=== PATIENT | female | born 1975 | race Caucasian/White ===

== ENCOUNTER → 2019-02-05 | Outpatient (CLI) | payer OTHER ==
[2019-02-05 08:43] LABS: ALBUMIN 3.3 g/dL (3.4-5.0); ALBUMIN/GLOBULIN RATIO 0.8 (1.0-1.7); CALCIUM 9.4 mg/dL (8.5-10.1); CREATININE 0.7 mg/dL (0.6-1.0); GFR 92.2; TOTAL BILIRUBIN 0.3 mg/dL (0.2-1.0); TOTAL PROTEIN 7.5 g/dL (6.4-8.2)
[2019-02-05 08:46] LABS: BASO % 1 % (0-3); EOS # 0.1 x10^3/uL (0.0-0.7); EOS % 3 % (0-3); HEMATOCRIT 42.3 % (36.0-47.0); HEMOGLOBIN 14.5 g/dL (12.0-15.5); LYMPH # 1.9 x10^3/uL (1.0-4.8); LYMPH % 32 % (24-48); MEAN CORPUSCULAR HEMOGLOBIN 29 pg (25-35); MEAN CORPUSCULAR HGB CONC 34 g/dL (31-37); MEAN CORPUSCULAR VOLUME 84 fL (79-100); MONO # 0.2 x10^3/uL (0.0-1.1); MONO % 4 % (0-9); NEUT # 3.7 x10^3uL (1.8-7.7); NEUT % 61 % (31-73); PLATELET COUNT 290 x10^3/uL (140-400); RED BLOOD COUNT 5.02 x10^6/uL (3.50-5.40); RED CELL DISTRIBUTION WIDTH 12.3 % (11.5-14.5); WHITE BLOOD COUNT 6.1 x10^3/uL (4.0-11.0)
[2019-02-05 18:57] LABS: FREE T4 1.19 ng/dL (0.76-1.46); THYROID STIM HORMONE (TSH) 1.257 uIU/mL (0.358-3.740)
[2019-02-07 11:11] LABS: HEMOGLOBIN A1C 14.6 % (4.8-5.6)
== END | disposition home or self-care (01) ==
LOC: LAB 07:34
PROVIDERS: ATTEND Registered Nurse
DX: Z13.6 Encounter for screening for cardiovascular disorders (principal); E11.42 Type 2 diabetes mellitus with diabetic polyneuropathy; F19.10 Other psychoactive substance abuse, uncomplicated
CPT/HCPCS: 36415; 80053; 82607; 83036; 84439; 84443; 85025; 86703; 86803

== ENCOUNTER → 2019-03-14 | Outpatient (CLI) | payer OTHER ==
--- NOTE | 2019-03-14 14:05 | RAD ---
EXAM: Bilateral lower extremity arterial Doppler sonogram. HISTORY: Numbness and paresthesia. TECHNIQUE: Crenshaw scale and color Doppler sonographic evaluation of the bilateral lower extremity arteries with spectral waveform analysis was performed. FINDINGS: There are normal triphasic waveforms throughout the bilateral lower extremity arteries, with exception of a biphasic waveform within the left distal posterior tibial artery. There are normal peak systolic velocities throughout the lower extremity arteries. IMPRESSION: No Doppler evidence of hemodynamically significant stenosis or occlusion involving the lower extremity arteries. Electronically signed by: Angela Owens MD (03/14/2019 2:02 PM) [place] [id number]
== END | disposition home or self-care (01) ==
LOC: US 09:48
PROVIDERS: ATTEND Registered Nurse
DX: I73.9 Peripheral vascular disease, unspecified (principal)
CPT/HCPCS: 93925

== ENCOUNTER → 2020-01-27 | Outpatient (CLI) | payer OTHER ==
--- NOTE | 2020-01-27 12:13 | RAD ---
AP and frog-leg views of the bilateral hips along with single AP view of the pelvis. COMPARISON: None. INDICATION: Hip pain. FINDINGS: No fracture subluxation dislocation. Minimal degenerative change. Electronically signed by: Leonardo Alfonso MD (01/27/2020 12:10 PM) [id number]
--- NOTE | 2020-01-27 13:13 | RAD ---
EXAM: Right knee, 2 views. HISTORY: Pain COMPARISON: None. FINDINGS: 2 views of the right knee are obtained. There is no fracture, dislocation or subluxation. There is mild medial compartment spurring. There is trace joint fluid without a significant effusion. IMPRESSION: Mild medial compartment osteoarthritis of the right knee. Electronically signed by: Angela Owens MD (01/27/2020 1:11 PM) [facility]
== END ==
LOC: PMG 10:46
PROVIDERS: ATTEND Family Medicine
DX: M17.11 Unilateral primary osteoarthritis, right knee (principal); M16.12 Unilateral primary osteoarthritis, left hip; M16.11 Unilateral primary osteoarthritis, right hip
CPT/HCPCS: 73521; 73560

== ENCOUNTER 2020-06-02 07:14 | Emergency (ER) | payer OTHER ==
[~2020-06-02] VITALS: Ht 165.1 cm; Wt 108.0 kg
[2020-06-02 07:23] VITALS: BP 132/78
[2020-06-02] MEDS ORDERED: SULF1TAB24 PO (07:56)
--- NOTE | 2020-06-02 07:57 | PHYS DOC ---
Past History Past Medical History: Constipation, Diabetes Past Surgical History: Cholecystectomy Alcohol Use: None General Adult EDM: Chief Complaint: SKIN PROBLEM HPI: HPI: 45-year-old female presents with abscess on her forehead. The spot has been here for about a week. A couple days ago she popped it and had some purulent discharge. It has refilled and enlarged. When she woke up this morning her eyes were swollen closed and her periorbital area is puffy as well as her for ehead. She has a headache from the pressure. She denies fever or chills. She has not had MRSA in the past. Review of Systems: Review of Systems: Constitutional: Denies fever or chills Eyes: Denies change in visual acuity HENT: Denies nasal congestion or sore throat Respiratory: Denies cough or shortness of breath Cardiovascular: Denies chest pain or edema GI: Denies abdominal pain, nausea, vomiting, bloody stools or diarrhea : Denies dysuria Musculoskeletal: Denies back pain or joint pain Integument: Abscess and cellulitis of the forehead Neurologic: Denies headache, focal weakness or sensory changes Endocrine: Denies polyuria or polydipsia Lymphatic: Denies swollen glands Psychiatric: Denies depression or anxiety Allergies: Allergies: Allergies Coded Allergies Type Severity Reaction Last Updated Verified No Known Drug Allergies 06/02/20 No Physical Exam: PE: Constitutional: Well developed, well nourished, no acute distress, non-toxic appearance. [] HENT: Normocephalic, atraumatic, bilateral external ears normal, oropharynx moist, no oral exudates, nose normal. [] Eyes: PERRLA, EOMI, conjunctiva normal, no discharge. [] Neck: Normal range of motion, no tenderness, supple, no stridor. [] Cardiovascular: Heart rate regular rhythm, no murmur [] Lungs & Thorax: Bilateral breath sounds clear to auscultation [] Abdomen: Bowel sounds normal, soft, no tenderness, no masses, no pulsatile masses. [] Skin: 1 cm abscess with 2 cm surrounding cellulitis of the forehead. There is general edema around this extending into the periorbital area especially on the right. [] Back: No tenderness, no CVA tenderness. [] Extremities: No tenderness, no cyanosis, no clubbing, ROM intact, no edema. [] Neurologic: Alert and oriented X 3, normal motor function, normal sensory function, no focal deficits noted. [] Psychologic: Affect normal, judgement normal, mood normal. [] Current Patient Data: Vital Signs: Vital Signs Date Time Temp Pulse Resp B/P (MAP) Pulse Ox O2 Delivery O2 Flow Rate FiO2 06/02/20 07:23 97.7 78 16 132/78 (96) 99 EKG: EKG: [] Radiology/Procedures: Radiology/Procedures: [] Heart Score: Risk Factors: Risk Factors: DM, Current or recent (<one month) smoker, HTN, HLP, family history of CAD, obesity. Risk Scores: Score 0 - 3: 2.5% MACE over next 6 weeks - Discharge Home Score 4 - 6: 20.3% MACE over next 6 weeks - Admit for Clinical Observation Score 7 - 10: 72.7% MACE over next 6 weeks - Early Invasive Strategies Course & Med Decision Making: Course & Med Decision Making Pertinent Labs and Imaging studies reviewed. (See chart for details) The patient has an abscess on her forehead. I performed an I&D and got purulent drainage. A culture was sent. I will place her on Bactrim for 7 days. She is stable for discharge at this time. [] Dragon Disclaimer: Dragon Disclaimer: This electronic medical record was generated, in whole or in part, using a voice recognition dictation system. Incision and Drainage Indication: Abscess of the forehead Procedure: The patient gave verbal permission for incision and drainage of the abscess on her forehead. No anesthesia was used. I made a small hole with a #11 blade. Purulent material was expressed. The abscess was milked until fluid appeared to be expressed. Wound culture was sent. The patient tolerated the procedure well. Complications: None Departure Departure: Impression: Primary Impression: Abscess or cellulitis of forehead Disposition: 01 DC HOME SELF CARE/HOMELESS Condition: IMPROVED Referrals: ANSELMO HICKS MD (PCP) Patient Instructions: Abscess, [id number] Scripts Sulfamethoxazole/Trimethoprim (BACTRIM DS TABLET) 1 Each Tablet 1 TAB PO BID for abscess for 7 Days, #14 TAB 0 Refills Prov: ELODIA MARIANO DO 06/02/20 ELODIA MARIANO DO Jun 02, 2020 07:57
== END 2020-06-02 08:18 | disposition home or self-care (01) ==
LOC: ER 07:14
DX: L02.01 Cutaneous abscess of face (principal); L03.211 Cellulitis of face; R51.9 Headache, unspecified; E11.9 Type 2 diabetes mellitus without complications
CPT/HCPCS: 10060; 87070; 99283